=== PATIENT | female | born 1975 | race Caucasian/White ===

== ENCOUNTER → 2017-03-29 | Outpatient (CLI) | payer OTHER ==
--- NOTE | 2017-03-29 11:50 | US ---
EXAMINATION TYPE: US abdomen limited DATE OF EXAM: 03/29/2017 COMPARISON: NONE CLINICAL HISTORY: R10.13 EPIGASTRIC PAIN. EXAM MEASUREMENTS: Liver Length: 12.9 cm Gallbladder Wall: 0.2 cm CBD: 0.2 cm Right Kidney: 11.6 x 4.3 x 4.3 cm Pancreas: visualized portions wnl Liver: wnl Gallbladder: No stones seen Evidence for sonographic Rivas's sign: No CBD: wnl Right Kidney: No hydronephrosis or masses seen IMPRESSION: No distinct abnormality appreciated.
== END | disposition home or self-care (01) ==
LOC: RADUSWWP 11:00
PROVIDERS: ATTEND Surgery
DX: R10.13 Epigastric pain (principal)
CPT/HCPCS: 76705

== ENCOUNTER → 2017-04-19 | Outpatient (CLI) | payer OTHER ==
--- NOTE | 2017-04-19 18:02 | NM ---
EXAMINATION TYPE: NM hepatobiliary w EF DATE OF EXAM: 04/19/2017 COMPARISON: Limited abdominal ultrasound March 29, 2017 HISTORY: Epigastric pain per order. Additional symptoms of heartburn and reflux with nausea per patie nt. TECHNIQUE: After the intravenous administration of 5.3 mCi Tc 99m Mebrofenin hepatobiliary scintigrap hy is performed. Immediate images post injection. FINDINGS: There is satisfactory initial accumulation of tracer by the liver. The gallbladder is visualized wit hin 35 minutes. The small bowel activity is noted within 25 minutes. At one hour 8 ounces of oral e nsure plus is given to mimic CCK and gallbladder ejection fraction is calculated at 82 %, not deviate d from the normal range. Therefore there is no scintigraphic evidence of cystic or common bile duct obstruction to suggest acute cholecystitis or gallbladder dyskinesia. IMPRESSION: Exam is within normal limits.
== END | disposition home or self-care (01) ==
LOC: RADNMMAIN 15:04
PROVIDERS: ATTEND Surgery
DX: R10.13 Epigastric pain (principal)
CPT/HCPCS: 78226; A9537

== ENCOUNTER → 2017-04-27 | Outpatient (CLI) | payer OTHER ==
--- NOTE | 2017-04-29 10:57 | MM ---
Reason for exam: screening (asymptomatic). Last mammogram was performed 3 years and 2 months ago. History: Family history of breast cancer in maternal aunt at age 65. Physical Findings: A clinical breast exam by your physician is recommended on an annual basis and results should be correlated with mammographic findings. MG Screening Mammo w CAD Bilateral CC and MLO view(s) were taken. Prior study comparison: March 07, 2014, bilateral MG screening mammo w CAD. The breast tissue is heterogeneously dense. This may lower the sensitivity of mammography. Finding: There is a stable 21 mm obscured round mass in the upper outer quadrant, posterior position of the right breast, present previous stable, but less well visualized currently. No significant changes in finding since March 07, 2014. ASSESSMENT: Benign, BI-RAD 2 RECOMMENDATION: Routine screening mammogram of both breasts in 1 year.
== END | disposition home or self-care (01) ==
LOC: RADMAMWWP 13:04
PROVIDERS: ATTEND Surgery
DX: Z12.31 Encounter for screening mammogram for malignant neoplasm of breast (principal)

== ENCOUNTER → 2018-10-20 | Outpatient (CLI) | payer OTHER ==
--- NOTE | 2018-10-20 09:47 | FL ---
EXAMINATION TYPE: FL barium swallow DATE OF EXAM: 10/20/2018 CLINICAL HISTORY: Nausea, belching, and gastroesophageal reflux TECHNIQUE: A double contrast esophagram is performed utilizing air and barium. A total of 1.41 kayla meseret of fluoroscopic time was utilized during procedure. 49 fluoroscopic images were saved during the examination COMPARISON: None FINDINGS: The esophagus shows normal motility and emptying into the stomach. No esophageal wall irregularity i s seen. No evidence of hiatal hernia or stricture noted. Trace gastroesophageal reflux was seen blanca ewing real time performance of this study to the level of the distal third of the esophagus. This was onl y visualized in the gravity independent portion of the examination. IMPRESSION: Trace gastroesophageal reflux. No hiatal hernia or esophageal stricture.
== END | disposition home or self-care (01) ==
LOC: RADUSWWP 08:58
PROVIDERS: ATTEND Surgery Plastic and Reconstructive Surgery
DX: K21.9 Gastro-esophageal reflux disease without esophagitis (principal)
CPT/HCPCS: 74220

== ENCOUNTER → 2022-05-06 | Outpatient (CLI) | payer MEDICAID ==
--- NOTE | 2022-05-07 11:45 | MM ---
Reason for Exam: Screening (asymptomatic). Last mammogram was performed 5 year(s) and 1 month(s) ago. Patient History: Menarche at age 13. First Full-Term at age 20. Patient has history of breast feeding. Maternal aunt had breast cancer, age 65. Maternal cousin had breast cancer. Risk Values: Marci 5 year model risk: 0.7%. NCI Lifetime model risk: 7.7%. Prior Study Comparison: 03/07/2014 Bilateral Screening Mammogram, [facility]. 04/27/2017 Bilateral Screening Mammogram, [facility]. Tissue Density: The breast tissue is heterogeneously dense. This may lower the sensitivity of mammography. Findings: Analyzed By CAD. Pattern appears stable. There is focal asymmetry in the upper-outer aspect left breast. There appears to be increasing punctate calcifications in the upper outer right breast. Additional workup is recommended. Overall Assessment: Incomplete: need additional imaging evaluation, BI-RAD 0 Management: Diagnostic Mammogram of the right breast. A negative mammogram report should not preclude additional follow up of suspicious palpable abnormalities. Patient should continue monthly self breast exam. A clinical breast exam by your physician is recommended on an annual basis and results should be correlated with mammographic findings. Electronically signed and approved by: Juan José Travis D.O. Radiologis
== END | disposition home or self-care (01) ==
LOC: RADMAMWWP 15:53
PROVIDERS: ATTEND Obstetrics & Gynecology
DX: Z12.31 Encounter for screening mammogram for malignant neoplasm of breast (principal); Z80.3 Family history of malignant neoplasm of breast
CPT/HCPCS: 77063; 77067

== ENCOUNTER → 2022-05-11 | Outpatient (CLI) | payer MEDICAID ==
--- NOTE | 2022-05-11 10:45 | MM ---
Reason for Exam: Additional evaluation requested from abnormal screening. Last screening mammogram was performed less than 1 month ago. Patient History: Menarche at age 13. First Full-Term at age 20. Patient has history of breast feeding. Maternal aunt had breast cancer, age 65. Maternal cousin had breast cancer. Risk Values: Marci 5 year model risk: 0.7%. NCI Lifetime model risk: 7.7%. Prior Study Comparison: 03/07/2014 Bilateral Screening Mammogram, [facility]. 03/15/2014 Right Diagnostic Ultrasound, [facility]. 04/27/2017 Bilateral Screening Mammogram, [facility] 05/06/2022 Bilateral MG 3D screening mammo w/cad, [facility]. Tissue Density: Right: There are scattered fibroglandular densities. Findings: Analyzed By CAD. Suspect global asymmetry posterior upper-outer quadrant right breast. Further ultrasound evaluation of this area. Regional punctate and heterogeneous calcifications noted at the 10:00 position in the same area. Stereotactic core needle biopsy recommended to ensure a benign process. Overall Assessment: Incomplete: need additional imaging evaluation, BI-RAD 0 Management: Diagnostic Breast Ultrasound of the right breast. Upper outer quadrant. Electronically signed and approved by: Leif Stanford M.D. Radiologist
--- NOTE | 2022-05-11 11:11 | USB ---
Patient History: Menarche at age 13. First Full-Term at age 20. Patient has history of breast feeding. Maternal aunt had breast cancer, age 65. Maternal cousin had breast cancer. Risk Values: Marci 5 year model risk: 0.7%. NCI Lifetime model risk: 7.7%. Technique: Method: Targeted. Prior Study Comparison: 03/07/2014 Bilateral Screening Mammogram, [facility]. 04/27/2017 Bilateral Screening Mammogram, [facility]. 05/06/2022 Bilateral MG 3D screening mammo w/cad, [facility]. Findings: The upper outer quadrant of the right breast, the axilla of the right breast and the retroareolar of the right breast were scanned. Targeted ultrasound right breast upper outer quadrant 9:00 to 12:00 including the subareolar region and axilla. There is a dense island of fibroglandular tissue at the 10:00 position corresponding to the mammographic density. There is a 1.5 cm benign cyst interposed within the dense tissue. No suspicious solid or cystic mass. No axillary lymphadenopathy. Overall Assessment: Suspicious, BI-RAD 4 Management: Stereotactic Core Biopsy of the right breast. For the grouped and regional lateral microcalcifications. Results were given to the patient verbally at the time of exam. Electronically signed and approved by: Leif Stanford M.D. Radiologist
== END | disposition home or self-care (01) ==
LOC: RADMAMWWP 10:19
PROVIDERS: ATTEND Obstetrics & Gynecology
DX: R92.8 Other abnormal and inconclusive findings on diagnostic imaging of breast (principal); Z80.3 Family history of malignant neoplasm of breast
CPT/HCPCS: 77061; 77065

== ENCOUNTER → 2022-05-20 | Day surgery (SDC) | payer MEDICAID ==
--- NOTE | 2022-05-26 09:39 | MM ---
Risk Values: Marci 5 year model risk: 0.7%. NCI Lifetime model risk: 7.7%. Prior Study Comparison: 04/27/2017 Bilateral Screening Mammogram, [facility]. 05/06/2022 Bilateral MG 3D screening mammo w/cad, [facility]. 05/11/2022 Right MG 3D work up w/cad RT, [facility]. Pathology Description: Location: 10 o'clock, posterior. Marker Left Behind. Specimen Radiograph. Calcium Found: Yes Approach: Lateral to Medial Needle Type: Eviva Cores: 7 Skin Nicks: 1 Gauge: 9 Complications: Vasovagal The procedure of stereotactic guided core biopsy was explained to the patient. Benefits, alternatives, and risks were discussed. An informed consent was then obtained. The shortness pathway for biopsy was chosen. Radiology provided at the target in performing the procedure. The procedure was explained to the patient, risks, complications and benefits. All questions are answered. Informed consent was obtained. A timeout was performed. The skin was cleansed. The skin and deeper breast tissue was anesthetized with 1% lidocaine. The deeper breast tissue with anesthetized lidocaine with epinephrine. 7 core samples were obtained. Sample: Mammographic sample has multiple grouped calcifications. Postprocedure mammogram: Physician order procedure mammogram is obtained. Surgical core marker corresponds to expected biopsy site. The patient tolerated the procedure well without any immediate complication. The patient was kept in the radiology department for short stay after the procedure and then discharged home in stable condition. Impression: 1. Successful stereotactic core biopsy right breast calcifications. Recommendations: 1. Recommendations are pending pathology results. Pathology Results: Result: High risk, Flat epithelial atypia. RIGHT BREAST, STEREOTACTIC NEEDLE CORE BIOPSY: Flat epithelial atypia (FEA/ADH) with calcifications and lobular neoplasia (ALH/LCIS) in a background of fibrocystic changes. See note. Notes E-cadherin immunoperoxidase stain performed and evaluated with an appropriate positive control demonstrates reduced to absent staining of atypical cells within enlarged lobular units. The findings confirm the diagnosis of lobular neoplasia. Overall Assessment: High risk Management: Surgical Consultation of the right breast. Electronically signed and approved by: Juan José Travis D.O. Radiologis
== END ==
LOC: RADMAMWWP 10:18
PROVIDERS: ATTEND Surgery
DX: N60.91 Unspecified benign mammary dysplasia of right breast (principal); R92.1 Mammographic calcification found on diagnostic imaging of breast
CPT/HCPCS: 88305; 88342; 19081; A4648

== ENCOUNTER → 2022-11-24 | Outpatient (CLI) | payer MEDICAID ==
--- NOTE | 2022-11-24 08:10 | MM ---
Reason for Exam: Follow-up at short interval from prior study. Last screening mammogram was performed 6 month(s) ago. Patient History: Menarche at age 13. First Full-Term at age 20. Patient has history of breast feeding. 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 06/21/2022, Lumpectomy on the Right side. 06/21/2022, High risk MG pre op needle loc RT on the right side. 05/20/2022, High risk MG stereo VAD BX RT on the right side. Maternal aunt had breast cancer, age 65. Maternal cousin had breast cancer. Risk Values: Marci 5 year model risk: 2.8%. NCI Lifetime model risk: 21.0%. Prior Study Comparison: 04/27/2017 Bilateral Screening Mammogram, [facility]. 05/06/2022 Bilateral MG 3D screening mammo w/cad, [facility]. 05/11/2022 Right MG 3D work up w/cad RT, [facility]. Tissue Density: Right: The breast tissue is heterogeneously dense. This may lower the sensitivity of mammography. Findings: Analyzed By CAD. Posttreatment changes right breast. There remains simple appearing cyst seen on prior ultrasound. No new suspicious masses, calcifications or distortions. Overall Assessment: Benign, BI-RAD 2 Management: Screening Mammogram of both breasts in 6 months. Results were given to the patient verbally at the time of exam. Patient should continue monthly self-breast exams. A clinical breast exam by your physician is recommended on an annual basis. This exam should not preclude additional follow-up of suspicious palpable abnormalities. Note on Marci scores and lifetime risk: 1. A Marci score greater than 3% is considered moderate risk. If this is the case, consider specialist referral to assess eligibility for a risk reducing agent. 2. If overall lifetime risk for the development of breast cancer is 20% or higher, the patient may qualify for future screening with alternating mammogram and breast MRI. Electronically signed and approved by: Aroldo Al DO
== END | disposition home or self-care (01) ==
LOC: RADMAMWWP 07:48
PROVIDERS: ATTEND Surgery
DX: R92.8 Other abnormal and inconclusive findings on diagnostic imaging of breast (principal); Z80.3 Family history of malignant neoplasm of breast
CPT/HCPCS: 77061; 77065

== ENCOUNTER → 2023-02-07 | Outpatient (CLI) | payer MEDICAID ==
--- NOTE | 2023-02-07 19:54 | CA ---
Transthoracic Echo Report Name: Anabell Wright Age: 47 Gender: F : 1975 Exam Date: 02/07/2023 16:50 Exam Location: [place] [facility] Ht (in): 67 Wt (lb): 195 Ordering Physician: Jimy Trujillo DO Attending/Referring Phys: Maik Joyce [facility] Induction Machine Setter Beulah Acevedo [facility] Procedure CPT: Indications: R00.2 Cardiac Hx: Technical Quality: Fair Contrast 1: Total Dose (mL): Contrast 2: Total Dose (mL): MEASUREMENTS (Male / Female) Normal Values 2D ECHO LV Diastolic Diameter PLAX 5.0 cm 4.2 - 5.9 / 3.9 - 5.3 cm LV Systolic Diameter PLAX 3.5 cm IVS Diastolic Thickness 0.7 cm 0.6 - 1.0 / 0.6 - 0.9 cm LVPW Diastolic Thickness 0.7 cm 0.6 - 1.0 / 0.6 - 0.9 cm LV Relative Wall Thickness 0.3 LVOT Diameter 2.0 cm Ascending Aorta Diameter 3.1 cm M-MODE Aortic Root Diameter MM 2.2 cm LA Systolic Diameter MM 3.6 cm LA Ao Ratio MM 1.6 AV Cusp Separation MM 1.8 cm DOPPLER AV Peak Velocity 156.4 cm/s AV Peak Gradient 9.8 mmHg AV Mean Velocity 117.3 cm/s AV Mean Gradient 6.1 mmHg AV Velocity Time Integral 34.1 cm LVOT Peak Velocity 97.8 cm/s LVOT Peak Gradient 3.8 mmHg LVOT Velocity Time Integral 21.8 cm LVOT Stroke Volume 67.2 cm??? LVOT Stroke Volume Index 33.6 ml/m??? LVOT Cardiac Index 2238.3 cm???/min???m??? AV Area Cont Eq vti 2.0 cm??? AV Area Cont Eq pk 1.9 cm??? Mitral E Point Velocity 77.2 cm/s Mitral A Point Velocity 60.0 cm/s Mitral E to A Ratio 1.3 MV Deceleration Time 110.1 ms LV E' Lateral Velocity 9.7 cm/s Mitral E to LV E' Lateral Ratio 8.0 LV E' Septal Velocity 9.8 cm/s Mitral E to LV E' Septal Ratio 7.9 TR Peak Velocity 222.1 cm/s TR Peak Gradient 19.7 mmHg Right Atrial Pressure 3.0 mmHg Pulmonary Artery Systolic Pressu 22.7 mmHg Right Ventricular Systolic Press 22.7 mmHg FINDINGS Left Ventricle Left ventricular wall thickness normal. Left ventricular cavity size at the upper limits of normal. Normal left ventricular systolic function with no obvious regional wall motion abnormalities. Left ventricular ejection fraction is estimated at 55-60%. Right Ventricle Normal right ventricular size. Right Atrium Normal right atrial size. Left Atrium Normal left atrial size. Mitral Valve Structurally normal mitral valve. Trace mitral regurgitation. Aortic Valve Trileaflet aortic valve. No aortic valve stenosis or regurgitation. Tricuspid Valve Structurally normal tricuspid valve. Trace to mild tricuspid regurgitation. Pulmonic Valve Pulmonic valve not well visualized. Pericardium No pericardial effusion. Aorta Normal size aortic root and proximal ascending aorta. CONCLUSIONS Normal LV size and systolic function Previewed by: Dr. Sid Mayo MD (Electronically Signed) Final Date: 07 February 2023 19:53
== END | disposition home or self-care (01) ==
LOC: RADECHMAIN 16:25
PROVIDERS: ATTEND Family Medicine
DX: R00.2 Palpitations (principal)
CPT/HCPCS: 93306

== ENCOUNTER → 2023-07-22 | Outpatient (CLI) | payer MEDICAID ==
--- NOTE | 2023-07-25 08:54 | MM ---
Reason for Exam: Screening (asymptomatic). Last mammogram was performed 1 year(s) and 2 month(s) ago. Patient History: Menarche at age 13. First Full-Term at age 20. Postmenopausal. Patient has history of breast feeding. 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 06/21/2022, Lumpectomy on the Right side. 06/21/2022, High risk MG pre op needle loc RT on the right side. 05/20/2022, High risk MG stereo VAD BX RT on the right side. Maternal aunt had breast cancer, age 65. Maternal cousin had breast cancer. Risk Values: Marci 5 year model risk: 2.8%. NCI Lifetime model risk: 21.0%. Prior Study Comparison: 05/06/2022 Bilateral MG 3D screening mammo w/cad, [facility]. 05/11/2022 Right MG 3D work up w/cad RT, [facility]. 11/24/2022 Right MG 3D diag mammo w/cad RT, [facility]. Tissue Density: The breasts are heterogeneously dense, which may obscure small masses. Findings: Analyzed By CAD. There are grouped calcifications in the upper outer quadrant of the right breast. Asymmetric density in the upper outer quadrant left breast. Recommend magnification views in the right and spot compression views on the left. Overall Assessment: Incomplete: need additional imaging evaluation, BI-RAD 0 Management: Diagnostic Mammogram of both breasts. . Patient should continue monthly self-breast exams. A clinical breast exam by your physician is recommended on an annual basis. This exam should not preclude additional follow-up of suspicious palpable abnormalities. Note on Marci scores and lifetime risk: 1. A Marci score greater than 3% is considered moderate risk. If this is the case, consider specialist referral to assess eligibility for a risk reducing agent. 2. If overall lifetime risk for the development of breast cancer is 20% or higher, the patient may qualify for future screening with alternating mammogram and breast MRI. Electronically signed and approved by: Boaz Son M.D. Radiologis
== END | disposition home or self-care (01) ==
LOC: RADMAMWWP 11:32
PROVIDERS: ATTEND Family Medicine
DX: Z12.31 Encounter for screening mammogram for malignant neoplasm of breast (principal); R00.2 Palpitations; Z78.0 Asymptomatic menopausal state; Z80.3 Family history of malignant neoplasm of breast
CPT/HCPCS: 77063; 77067; 93270

== ENCOUNTER → 2023-07-26 | Outpatient (CLI) | payer MEDICAID ==
--- NOTE | 2023-07-26 10:06 | USB ---
Reason for Exam: Additional evaluation requested from abnormal screening. Patient History: Menarche at age 13. First Full-Term at age 20. Perimenopausal. Patient has history of breast feeding. 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 06/21/2022, Lumpectomy on the Right side. 06/21/2022, High risk MG pre op needle loc RT on the right side. 05/20/2022, High risk MG stereo VAD BX RT on the right side. Maternal aunt had breast cancer, age 65. Maternal cousin had breast cancer. Risk Values: Marci 5 year model risk: 2.8%. NCI Lifetime model risk: 21.0%. Technique: Method: Targeted. Prior Study Comparison: 05/11/2022 Right MG 3D work up w/cad RT, [facility]. 11/24/2022 Right MG 3D diag mammo w/cad RT, [facility]. 07/22/2023 Bilateral MG 3D screening mammo w/cad, [facility]. Findings: The lower outer quadrant of the left breast, the axilla of the left breast and the retroareolar of the left breast were scanned. At the 4:00 position 9 cm from the nipple is a 0.5 x 0.7 x 0.3 cm simple appearing cyst. This appears to correlate with the mammographic findings. Short-term follow-up mammogram in 6 months is recommended. Given the changing findings on the mammogram within the right breast calcifications, surgical consultation with consideration for additional imaging such as MRI or ultrasound should be considered. Overall Assessment: Probably benign, BI-RAD 3 Management: Diagnostic Mammogram of the left breast in 6 months. Surgical Consultation of the right breast. A clinical breast exam by your physician is recommended on an annual basis and results should be correlated with mammographic findings. This exam should not preclude additional follow-up of suspicious palpable abnormalities. Results were given to the patient verbally at the time of exam. Electronically signed and approved by: Juan José Travis D.O. Radiologis
--- NOTE | 2023-07-26 13:44 | MM ---
Reason for Exam: Additional evaluation requested from abnormal screening. Last screening mammogram was performed less than 1 month ago. Patient History: Menarche at age 13. First Full-Term at age 20. Perimenopausal. Patient has history of breast feeding. 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 06/21/2022, Lumpectomy on the Right side. 06/21/2022, High risk MG pre op needle loc RT on the right side. 05/20/2022, High risk MG stereo VAD BX RT on the right side. Maternal aunt had breast cancer, age 65. Maternal cousin had breast cancer. Risk Values: Marci 5 year model risk: 2.8%. NCI Lifetime model risk: 21.0%. Prior Study Comparison: 04/27/2017 Bilateral Screening Mammogram, [facility]. 05/06/2022 Bilateral MG 3D screening mammo w/cad, [facility]. 05/11/2022 Right MG 3D work up w/cad RT, [facility]. 11/24/2022 Right MG 3D diag mammo w/cad RT, [facility]. 07/22/2023 Bilateral MG 3D screening mammo w/cad, [facility]. Tissue Density: The breasts are heterogeneously dense, which may obscure small masses. ablation at 34 yrs old. Findings: Analyzed By CAD. Pattern appears stable. Right breast: There appear to be some increasing calcifications within the right breast. This is an area of previous biopsy which reported a focal lobular neoplasia, ALH/LCIS. Given the high risk lesion, consider additional imaging such as contrast MRI. Ultrasound could be considered, however given 2 previous biopsies at this location, interpretation may be difficult. Left breast: Focal area of asymmetry within the left breast appears to disperse normally on compression. There may be some persistence of density in the medial lateral view. Ultrasound is recommended for additional evaluation of this area.Pattern appears stable. Right breast: There appear to be some increasing calcifications within the right breast. This is an area of previous open biopsy which reported a focal lobular neoplasia, ALH/LCIS. Given the high risk lesion, consider additional imaging such as contrast MRI. Ultrasound could be considered, however given 2 previous biopsies at this location, ultrasound interpretation may be difficult. Left breast: Focal area of asymmetry within the left breast appears to disperse normally on compression. There may be some persistence of density in the medial lateral view. Ultrasound is recommended for additional evaluation of this area. Overall Assessment: Incomplete: need additional imaging evaluation, BI-RAD 0 Management: Diagnostic Breast Ultrasound of the left breast. Surgical Consultation of the right breast. A negative mammogram report should not preclude additional follow up of suspicious palpable abnormalities. Patient should continue monthly self breast exam. A clinical breast exam by your physician is recommended on an annual basis and results should be correlated with mammographic findings. Electronically signed and approved by: Juan José Travis D.O. Radiologis
== END | disposition home or self-care (01) ==
LOC: RADMAMWWP 08:38
PROVIDERS: ATTEND Family Medicine
DX: R92.333 Mammographic heterogeneous density, bilateral breasts (principal); Z80.3 Family history of malignant neoplasm of breast
CPT/HCPCS: 77062; 77066

== ENCOUNTER → 2024-05-04 | Outpatient (CLI) | payer MEDICAID ==
--- NOTE | 2024-05-04 10:45 | MM ---
Reason for Exam: Follow-up at short interval from prior study. Last screening mammogram was performed 10 month(s) ago. Patient History: Menarche at age 13. First Full-Term at age 20. Perimenopausal. Patient has history of breast feeding. 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 06/21/2022, Lumpectomy on the Right side. 06/21/2022, High risk MG pre op needle loc RT on the right side. 05/20/2022, High risk MG stereo VAD BX RT on the right side. Maternal aunt had breast cancer, age 65. Maternal cousin had breast cancer. Risk Values: Marci 5 year model risk: 2.5%. NCI Lifetime model risk: 20.5%. Prior Study Comparison: 11/24/2022 Right MG 3D diag mammo w/cad RT, [facility]. 07/22/2023 Bilateral MG 3D screening mammo w/cad, [facility]. 07/26/2023 Bilateral MG 3D work up w/cad [facility], [facility]. Tissue Density: Left: There are scattered areas of fibroglandular density. Findings: Analyzed By CAD. The pattern appears stable. No significant interval change. No suspicious groups of microcalcifications, spiculated or lobular masses, architectural distortion or other secondary signs of malignancy are mammographically apparent. Overall Assessment: Probably benign, BI-RAD 3 Management: Diagnostic Mammogram of both breasts in 3 months. A negative mammogram report should not preclude additional follow up of suspicious palpable abnormalities. Patient should continue monthly self breast exam. A clinical breast exam by your physician is recommended on an annual basis and results should be correlated with mammographic findings. Note on Marci scores and lifetime risk: 1. A Marci score greater than 3% is considered moderate risk. If this is the case, consider specialist referral to assess eligibility for a risk reducing agent. 2. If overall lifetime risk for the development of breast cancer is 20% or higher, the patient may qualify for future screening with alternating mammogram and breast MRI. [facility], , 05/04/2024 10:42 AM. Electronically signed and approved by: Juan José Travis D.O. Radiologis
== END | disposition home or self-care (01) ==
LOC: RADMAMWWP 10:21
PROVIDERS: ATTEND Family Medicine
DX: N60.92 Unspecified benign mammary dysplasia of left breast (principal); Z80.3 Family history of malignant neoplasm of breast; R92.322 Mammographic fibroglandular density, left breast
CPT/HCPCS: 77061; 77065